=== PATIENT | male | born 1945 | race Caucasian/White ===

== ENCOUNTER 2016-06-01 23:28 | Emergency (ER) | payer BC, OTHER ==
[2016-06-01 23:34] VITALS: BP 139/84; PULSE 79; TEMP 98.1; BMI 25.0
--- NOTE | 2016-06-01 23:56 | PDOC ---
History of Present Illness - General Chief Complaint: Pain, Acute Stated Complaint: BACK PAIN Time Seen by Provider: 06/01/16 23:30 - History of Present Illness Initial Comments: This 70-year-old man presents with history of lower back pain for the last 2 days. Patient states that he arose quickly from a seated position while at work 2 days ago; he felt pain in the right lower back/right buttock. No other trauma noted; he denies fall or impact to the lower spine. This pain resolved over the next several hours but later that evening he again arose quickly to answer the telephone. He then developed left lower back/left buttock pain. This has continued until presentation. Patient states that he is sensitive to most medications. He took half Tylenol yesterday without significant relief and 2 of his 's Flexeril tablets today without significant relief in pain. He states that Flexeril made him mildly lightheaded only. He has not had any significant numbness/paresthesias in his left leg (states that he briefly had thigh tingling earlier today that resolved spontaneously). There has been no weakness of his leg. He denies groin numbness or difficulty with urination/ defecation. 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) PMH HTN Past History - Past Medical History Allergies/Adverse Reactions: Allergies Allergy/AdvReac Type Severity Reaction Status Date / Time codeine Allergy Verified 06/01/16 23:30 Home Medications: Ambulatory Orders Coreg 06/01/16 Cyclobenzaprine HCl 06/01/16 Lotrel 5-40 mg Capsule 06/01/16 Tizanidine HCl 2 mg PO TID #12 tablet 06/02/16 HTN: Yes - Psycho/Social/Smoking Cessation Hx Anxiety: No Suicidal Ideation: No Smoking History: Never smoked Review of Systems - Review of Systems Able to Perform ROS?: Yes Comments:: 12 point review of systems is negative except for what is noted in the history of present illness *Physical Exam - Vital Signs Last Vital Signs Temp Pulse Resp BP Pulse Ox 98.1 F 79 18 139/84 100 06/01/16 23:32 06/01/16 23:32 06/01/16 23:32 06/01/16 23:32 06/01/16 23:32 - Physical Exam Comments: GENERAL: The patient is awake, alert, and fully oriented, in mild distress. Vital signs as noted. HEAD: Normal with no signs of trauma. EYES: Pupils equal, round and reactive to light, extraocular movements intact, sclera anicteric, conjunctiva clear with no pallor. ENT: moist mucous membranes. Ears normal, nares patent, oropharynx clear without exudates. NECK: Normal range of motion, supple without lymphadenopathy, JVD, or masses. LUNGS: Breath sounds equal, clear to auscultation bilaterally. No wheeze/ crackles. HEART: Regular rate and rhythm, normal S1 and S2 without murmur or rub. ABDOMEN: Soft/nontender/nondistended. BS wnl. No guarding or rebound. No palpable masses. No hepatosplenomegaly. EXTREMITIES: Normal range of motion, no edema. No clubbing or cyanosis. No cords, erythema, or tenderness. Tenderness left lower back/left sciatic notch; pain reproduced with movement of left leg (hip flexion/knee extension) No sensory deficit noted; strength 5/5 throughout NEUROLOGICAL: Cranial nerves II through XII grossly intact. Normal speech, normal gait. PSYCH: Normal mood, normal affect. SKIN: Warm, Dry, normal turgor, no rashes or lesions noted. Medical Decision Making - Medical Decision Making 06/02/16 01:00 Patient reports marked relief in left lower back/buttock pain after 60 mg Toradol IM Patient will be discharged with prescription for tizanidine 2 mg up to 3 times a day as needed for muscle spasm. Patient should not states that he will continue to use Tylenol as needed for pain; nonsteroidal anti-inflammatories have been irritating to his stomach in the past. Patient asked for referral information for orthopedic spinal surgeon. Patient will be given contact information for Dr. Ocampo *DC/Admit/Observation/Transfer Diagnosis at time of Disposition: Sciatica of left side - Discharge Dispostion Disposition: HOME Condition at time of disposition: Stable - Prescriptions Prescriptions: Tizanidine HCl 2 mg PO TID #12 tablet - Referrals Referrals: STAFF,NOT ON [Primary Care Provider] - Stephane Ocampo MD [Staff Physician] - - Patient Instructions Printed Discharge Instructions: Sciatica Additional Instructions: Avoid strenuous activity for the next several days Local warmth to area of pain Tizanidine 2 mg up to 3 times a day as needed for muscle spasms Tylenol as needed for pain Follow-up with your general medical doctor within the next week Follow-up with (orthopedic spine surgeon) if you have persistent lower back pain Return to ER if you have leg weakness/numbness
[2016-06-02] MEDS ORDERED: KETOROLAC TROMETHAMINE 60 MG/2 ML VIAL ONE (00:14)
[2016-06-02] MEDS ORDERED: KETOROLAC TROMETHAMINE 60 MG/2 ML VIAL IM ONE (00:14)
== END 2016-06-02 00:58 | disposition home or self-care (01) ==
LOC: FER 23:28
PROC: 3E0233Z Introduction of Anti-inflammatory into Muscle, Percutaneous Approach (ICD-10-PCS; principal; 2016-06-01)
DX: M54.32 Sciatica, left side (principal); I10 Essential (primary) hypertension
CPT/HCPCS: 99282-25

== ENCOUNTER 2022-10-23 13:18 | Emergency (ER) | payer BC ==
[2022-10-23 13:26] VITALS: PULSE 60; BMI 21.7
[2022-10-23] MEDS ORDERED: ACETAMINOPHEN 1000 MG/100 ML BAG IVPB ONE (14:06)
[2022-10-23] MEDS ORDERED: METOCLOPRAMIDE HCL INJECTION 10 MG/2 ML VIAL IVPUSH ONE (14:06)
[2022-10-23] MEDS ORDERED: LACTATED RINGERS SOLUTION 1000 ML INFUS.BAG IV ONE (14:06)
[2022-10-23] MEDS ORDERED: METOCLOPRAMIDE HCL INJECTION 10 MG/2 ML VIAL ONE (14:45)
[2022-10-23 15:50] LABS: BASO % 0.3 % (0-2.0); EOS % 0.1 % (0-4.5); HEMATOCRIT 33.7 % (35.4-49); HEMOGLOBIN 11.6 GM/dL (11.7-16.9); LYMPH % 8.3 % (8-40); MCHC 34.5 g/dl (32.0-35.9); MEAN CELL VOLUME 89.9 fl (80-96); MEAN PLT VOLUME 7.7 fl (7.5-11.1); MONO % 10.6 % (3.8-10.2); NEUT % 80.7 % (42.8-82.8); PLATELET COUNT 140 10^3/uL (134-434); RBC 3.74 M/mm3 (4.00-5.60); RDW 13.3 % (11.9-15.9); WHITE BLOOD COUNT 3.6 K/mm3 (4.0-10.0)
[2022-10-23 16:38] VITALS: BP 125/67; RESP 20; TEMP 98.9
[2022-10-23 17:08] LABS: POTASSIUM 4.1 mmol/L (3.5-5.1)
[2022-10-23 17:11] LABS: CALCIUM 8.8 mg/dL (8.5-10.1)
[2022-10-23 17:12] LABS: ALBUMIN 3.3 g/dl (3.4-5.0); BLOOD UREA NITROGEN 20.3 mg/dL (7-18); MAGNESIUM 1.7 mg/dL (1.8-2.4)
[2022-10-23 17:16] LABS: BILIRUBIN,TOTAL 0.5 mg/dL (0.2-1)
[2022-10-23 17:17] LABS: TOT PROT 6.9 g/dl (6.4-8.2)
== END 2022-10-23 18:50 | disposition home or self-care (01) ==
LOC: JER 13:18
DX: R11.2 Nausea with vomiting, unspecified (principal); R53.83 Other fatigue; R53.81 Other malaise; R53.1 Weakness; U07.1 COVID-19; R68.83 Chills (without fever); R51.9 Headache, unspecified; R19.8 Other specified symptoms and signs involving the digestive system and abdomen
CPT/HCPCS: 0241U-QW; 36415; 71045-TC-FY; 80053; 83690; 83735; 84484; 85025; 93005; 93010; 99285-25